=== PATIENT | female | born 1985 | race Caucasian/White ===

== ENCOUNTER 2020-10-01 14:26 | Inpatient (IN) ==
[2020-10-01 15:58] LABS: Urine Benzodiazepine Screen None Detected (None Detect); Urine Cannabinoids Screen Presumptive Positive (None Detect); Urine Opiates Screen None Detected (None Detect)
[2020-10-01 15:59] LABS: Urine Appearance Turbid; Urine Bilirubin 1+ (Negative); Urine Blood Negative (Negative); Urine Color Amber; Urine Glucose Negative (Negative); Urine Ketones Trace (Negative); Urine Nitrite Negative (Negative); Urine Protein 1+(30 mg/dL) (Negative); Urine Specific Gravity 1.035 (1.010-1.030); Urine Urobilinogen Negative (Negative)
[2020-10-01 16:03] LABS: ABS Lymphocytes 1.4 10^3/ul (1.0-4.8); ABS Monocytes 0.2 10^3/ul (0-0.8); ABS Neutrophils 7.5 10^3/ul (1.5-7.7); Eosinophil % 0.1 %; Hematocrit 42 % (35-47); Hemoglobin 13.8 g/dL (12.0-16.0); Lymphocyte % 15.2 %; Mean Corpuscular HGB Conc 33 g/dL (31-36); Mean Corpuscular Hemoglobin 29 pg (27-31); Mean Corpuscular Volume 87 fL (80-97); Mean Platelet Volume 8.3 fL (7.4-10.4); Platelet Count 323 10^3/uL (150-450); Red Blood Count 4.82 10^6 /uL (3.70-4.87); Red Cell Distribution Width 14 % (10-15); White Blood Count 9.1 10^3/uL (3.5-10.8)
[2020-10-01 16:07] LABS: Urine Bacteria 2+ (Absent); Urine Red Blood Cell 3+(>10/hpf) (Absent); Urine Squamous Epithelial Cell Present (Absent); Urine White Blood Cell 2+(11-20/hpf) (Absent)
[2020-10-01 16:24] LABS: ALT 15 U/L (7-52); AST 14 U/L (13-39); Albumin 4.6 g/dL (3.2-5.2); Albumin/Globulin Ratio 1.8 (1-3); Alkaline Phosphatase 73 U/L (34-104); Anion Gap 6 mmol/L (2-11); BUN/Creatinine Ratio 13.4 (8-20); Blood Urea Nitrogen 9 mg/dL (6-24); CO2 Carbon Dioxide 25 mmol/L (22-32); Calcium 9.5 mg/dL (8.6-10.3); Chloride 108 mmol/L (101-111); EGFR African American 121.9 (>60); EGFR Non-African American 100.8 (>60); Globulin 2.5 g/dL (2-4); Glucose 118 mg/dL (70-100); Potassium 3.8 mmol/L (3.5-5.0); Sodium 139 mmol/L (135-145); Total Protein 7.1 g/dL (6.4-8.9)
[2020-10-01 16:26] LABS: HCG Pregnancy < 0.60 mIU/mL
[2020-10-01 16:34] LABS: Alcohol, S < 10 mg/dL (<10); Salicylate < 2.50 mg/dL (<30)
[2020-10-01 16:42] LABS: Acetaminophen < 15 mcg/mL
[2020-10-01 16:48] LABS: TSH Ultra Thyroid Stim Horm 0.72 mcIU/mL (0.34-5.60)
[2020-10-01] MEDS ORDERED: Al Hydrox/Mg Hydrox/Simet LIQ 30 ML UDC PO PRN (23:51)
[2020-10-01] MEDS ORDERED: Albuterol HFA INHALER 8 gm MDI INH PRN (23:54)
[2020-10-02] MEDS ORDERED: Nicotine GUM 2MG FRUIT FLAVOR PO PRN (00:03)
[2020-10-02] MEDS: Vitamin THERAPEUTIC TAB PO SCH (08:31)
[2020-10-02] MEDS: Nicotine PATCH 14 MG/24 HR PATCH TRANSDERM SCH (08:31)
[2020-10-02] MEDS ORDERED: DULoxetine DR 60 mg CAP PO SCH (09:00)
[2020-10-03 08:25] LABS: HDL Cholesterol 28.4 mg/dL
[2020-10-03] MEDS: Vitamin THERAPEUTIC TAB PO SCH (08:34)
[2020-10-03] MEDS: Nicotine PATCH 14 MG/24 HR PATCH TRANSDERM SCH (08:34)
[2020-10-03] MEDS: DULoxetine DR 30 mg CAP PO SCH (08:34)
[2020-10-04] MEDS: DULoxetine DR 30 mg CAP PO SCH (09:07)
[2020-10-04] MEDS: Vitamin THERAPEUTIC TAB PO SCH (09:08)
[2020-10-04] MEDS: Nicotine PATCH 14 MG/24 HR PATCH TRANSDERM SCH (09:09)
[2020-10-05] MEDS: Nicotine PATCH 14 MG/24 HR PATCH TRANSDERM SCH (09:02)
[2020-10-05] MEDS: DULoxetine DR 30 mg CAP PO SCH (09:02)
[2020-10-05] MEDS: Vitamin THERAPEUTIC TAB PO SCH (09:02)
[2020-10-05 09:39] VITALS: BP 124/65
== END 2020-10-05 12:15 | disposition home or self-care (01) | DRG 751 ==
LOC: ED 14:26 → BSU 21:36
PROVIDERS: ADMIT Psychiatry & Neurology Psychiatry; ATTEND Psychiatry & Neurology Psychiatry